=== PATIENT | female | born 1955 | race Caucasian/White ===

== ENCOUNTER 2016-07-05 13:17 | Emergency (ER) | payer MEDICARE ==
--- NOTE | 2016-07-05 13:23 | ER Document Report ---
ED Medical Screen (RME) - General Stated Complaint: BLOOD PRESSURE PROBLEM Notes: 61 yo female with hx/o HTN requesting refill of BP medication. has been out of meds x 4 days. c/o slight headache, generalized 3/5. + shortness of breath, but normal per patient. pt has COPD. Denies chest pain. [facility] [place]. Pt reports she will be able to see [facility] tomorrow. TRAVEL OUTSIDE OF THE [place] IN LAST 30 DAYS: No - Related Data Allergies/Adverse Reactions: Sulfa (Sulfonamide Antibiotics) Allergy (Intermediate, Verified 03/28/12 07:39) rash Past Medical History - Past Medical History Cardiac Medical History: Reports: Hx Coronary Artery Disease, Hx Hypercholesterolemia, Hx Hypertension, Hx Heart Murmur Pulmonary Medical History: Reports: Hx Bronchitis, Hx COPD Musculoskeltal Medical History: Reports Hx Arthritis Psychiatric Medical History: Reports: Hx Anxiety, Hx Depression Past Surgical History: Reports: Hx Cardiac Surgery - CABG x3, aortic valve, Hx Cholecystectomy, Hx Coronary Artery Bypass Graft - 12/2015, Hx Internal Defibrillator, Hx Pacemaker, Hx Tonsillectomy - Immunizations Immunizations up to date: Yes Hx Diphtheria, Pertussis, Tetanus Vaccination: Yes
[2016-07-05] MEDS ORDERED: LISINOPRIL 5 MG TABLET PO ONE (14:01)
--- NOTE | 2016-07-05 14:07 | ER Document Report ---
ED General - General Chief Complaint: Medication Refill Stated Complaint: BLOOD PRESSURE PROBLEM Mode of Arrival: Ambulatory Information source: Patient Notes: This is a 61-year-old female with a history of hypertension, COPD, and chronic back pain who presents for concern of elevated blood pressure. She states that she has been out of her lisinopril for the past 4 days and has been difficult having difficulty getting a refill from her primary care physician, whom she plans to see tomorrow about this. She is mainly here at the urging of her daughter who took the patient's blood pressure at home and noted that it was elevated with systolic of 180. They then went to [email or web address]] to have the blood pressure checked and there it was 196/100. The patient tells me that she has felt fine today and specifically denies any chest pain, shortness of breath, headache, vision changes, or weakness or paresthesias. She has been tolerating PO and feeling just fine today. She requests a refill of her lisinopril to last her until her primary care can refill it. TRAVEL OUTSIDE OF THE [place] IN LAST 30 DAYS: No - Related Data Allergies/Adverse Reactions: Sulfa (Sulfonamide Antibiotics) Allergy (Intermediate, Verified 03/28/12 07:39) rash Past Medical History - General Information source: Patient - Social History Smoking Status: Never Smoker Chew tobacco use (# tins/day): No Frequency of alcohol use: None Drug Abuse: None Family History: CAD, COPD Patient has suicidal ideation: No Patient has homicidal ideation: No - Past Medical History Cardiac Medical History: Reports: Hx Coronary Artery Disease, Hx Hypercholesterolemia, Hx Hypertension, Hx Heart Murmur Pulmonary Medical History: Reports: Hx Bronchitis, Hx COPD Renal/ Medical History: Denies: Hx Peritoneal Dialysis Musculoskeltal Medical History: Reports Hx Arthritis Psychiatric Medical History: Reports: Hx Anxiety, Hx Depression Past Surgical History: Reports: Hx Cardiac Surgery - CABG x3, aortic valve, Hx Cholecystectomy, Hx Coronary Artery Bypass Graft - 12/2015, Hx Internal Defibrillator, Hx Pacemaker, Hx Tonsillectomy - Immunizations Immunizations up to date: Yes Hx Diphtheria, Pertussis, Tetanus Vaccination: Yes Review of Systems - Review of Systems Notes: REVIEW OF SYSTEMS: CONSTITUTIONAL : Denies fever, chills, or sweats. Denies recent illness. EENT: Denies eye, ear, throat, or mouth pain or symptoms. Denies nasal or sinus congestion. CARDIOVASCULAR: Denies chest pain. RESPIRATORY: Denies cough, cold, or chest congestion. Denies breathing difficulty. She has COPD and states that her breathing is at her baseline. GASTROINTESTINAL: Denies abdominal pain. Denies nausea, vomiting, or diarrhea. GENITOURINARY: Denies difficulty urinating, painful urination, burning, frequency, or blood in urine. MUSCULOSKELETAL: Denies neck or back pain or joint pain or swelling. SKIN: Denies rash or skin lesions. HEMATOLOGIC : Denies easy bruising or bleeding. LYMPHATIC: Denies swollen, enlarged glands. NEUROLOGICAL: Denies altered mental status or loss of consciousness. Denies headache. PSYCHIATRIC: Denies anxiety or stress or depression. ALL OTHER SYSTEMS REVIEWED AND NEGATIVE. Physical Exam - Notes Notes: PHYSICAL EXAMINATION: GENERAL: Well-appearing, well-nourished and in no acute distress. Smiling, pleasant and conversant. HEAD: Atraumatic, normocephalic. EYES: Pupils equal round and reactive to light, extraocular movements intact, sclera anicteric, conjunctiva are normal. ENT: nares patent, oropharynx clear without exudates. Moist mucous membranes. NECK: Normal range of motion, supple without lymphadenopathy LUNGS: Breath sounds clear to auscultation bilaterally and equal. No wheezes rales or rhonchi. HEART: Regular rate and rhythm without murmurs ABDOMEN: Soft, nontender, normoactive bowel sounds. No guarding, no rebound. No masses appreciated. EXTREMITIES: Normal range of motion, no pitting or edema. No cyanosis. NEUROLOGICAL: Cranial nerves grossly intact. Normal speech, normal gait. Normal sensory, motor, and reflex exams. PSYCH: Normal mood, normal affect. SKIN: Warm, Dry, normal turgor, no rashes or lesions noted. Course - Re-evaluation Re-evalutation: 07/05/16 14:06 Patient has a benign physical exam and moderately elevated blood pressure and has been out of her lisinopril. Of note her daughter states that they did check her blood pressure today very shortly after she completed an albuterol nebulizer treatment. At this point she is asymptomatic and I do not feel that further workup is indicated at this point. Patient does not desire to have blood work or further testing done today. We will give her her dose of lisinopril now and refill her lisinopril to last until she can complete a refill from her primary care physician. We did discuss strict return precautions to include severe headache, weakness or numbness or tingling, chest pain or difficulty breathing or any worsening symptoms or concerns. She and her family are very comfortable with the plan and all questions were answered. 07/05/16 14:07 Discharge - Discharge Clinical Impression: Medication refill Hypertension Qualifiers: Hypertension type: essential hypertension Qualified Code(s): I10 - Essential ( primary) hypertension Condition: Stable Disposition: HOME, SELF-CARE Additional Instructions: HIGH BLOOD PRESSURE REQUIRING TREATMENT: Your blood pressure is high. This is called "hypertension." Your history and exam suggest that this is not a temporary problem. You need treatment of your blood pressure. If left untreated, high blood pressure greatly increases your risk of heart attack and stroke. Please don't ignore this problem. If you have blood pressure medicine but aren't using it regularly, start taking it again. Some simple things you can do to help are: Get some aerobic exercise for at least 20 minutes on a daily basis. (See your doctor before beginning any new exercise program.) Eat a low-fat diet. Lose excess weight. Avoid salty foods and avoid adding salt to any of the foods you eat. Avoid diet pills, decongestants, "energizing" herbs, and other medicines that elevate blood pressure. There are many different medicines that treat blood pressure. If your medication causes unpleasant side effects, call your doctor. There are others you can try. Treating hypertension is a life-long investment in your health. ANGIOTENSIN CONVERTING ENZYME INHIBITOR MEDICATION: "RODRIGO inhibitor" drugs are used to lower high blood pressure (or to reduce the "work" of the heart in patients with heart failure). These drugs block an enzyme that makes your blood vessels constrict and makes you retain salt. The result is lower blood pressure. RODRIGO inhibitors cause few side effects. The most common side effect is a dry nagging cough. Occasionally, lightheadedness may occur while you get used to the medicine. Some patients may retain extra potassium (this is a problem if you are taking potassium supplements, potassium-containing salt substitutes, or a potassium-retaining drug such as triamterene, spironolactone, or amiloride) . If you are taking lithium, the lithium level must be rechecked after starting an RODRIGO inhibitor. RODRIGO inhibitors should NOT be used during . Contact the doctor or return if you develop severe lightheadedness, wheeze , weakness, palpitations or other new symptoms. FOLLOW-UP CARE: If you have been referred to a physician for follow-up care, call the physician s office for an appointment as you were instructed or within the next two days. If you experience worsening or a significant change in your symptoms, notify the physician immediately or return to the Emergency Department at any time for re-evaluation. Continue home medications as prescribed. Please follow-up with your primary care physician tomorrow to discuss further refills. Return to the emergency department for chest pain, headache, or any worsening symptoms or concerns as we discussed. Prescriptions: Lisinopril [Prinivil] 5 mg PO DAILY #10 tablet Referrals: OTILIO NAIR FNP [Primary Care Provider] - Follow up tomorrow
[2016-07-05 14:40] VITALS: BP 148/83
== END 2016-07-05 14:41 | disposition home or self-care (01) ==
LOC: ER 13:17
DX: I10 Essential (primary) hypertension (principal); J44.9 Chronic obstructive pulmonary disease, unspecified; Z88.2 Allergy status to sulfonamides; I25.10 Atherosclerotic heart disease of native coronary artery without angina pectoris; Z95.1 Presence of aortocoronary bypass graft; Z95.810 Presence of automatic (implantable) cardiac defibrillator
CPT/HCPCS: 99281; A9270

== ENCOUNTER 2016-09-25 11:09 | Emergency (ER) | payer MEDICARE ==
[2016-09-25 11:20] VITALS: BP 161/91
--- NOTE | 2016-09-25 11:42 | ER Document Report ---
ED Medical Screen (RME) - General Chief Complaint: Chest Pain Stated Complaint: CHEST PAIN/ LEG SWOLLEN Time Seen by Provider: 09/25/16 11:19 Mode of Arrival: Ambulatory Information source: Patient TRAVEL OUTSIDE OF THE [place] IN LAST 30 DAYS: No - HPI Patient complains to provider of: Left lower extremity pain and swelling chest pain, shortness of breath Onset: Yesterday Onset/Duration: Gradual Quality of pain: Achy, Fullness, Pressure Severity: Moderate Pain Level: 3 Associated Symptoms: Body/muscle aches, Chest pain, Shortness of breath Exacerbated by: Denies Relieved by: Denies Similar symptoms previously: No Recently seen / treated by doctor: No Notes: 09/25/16 11:41 Patient is a 61-year-old female with a history of COPD, chronic low back pain, CABG with aortic valve replacement approximately 1 year ago, pacemaker, who presents to the emergency room complaining of left lower extremity pain and swelling this been worsening over the past few days, she reports "itty bitty chest pain" while driving to the emergency room today, and shortness of breath that is more chronic in nature from COPD without any worsening is a former smoker quitting at least 12 years ago, no recent traveling, no periods of immobilization, no recent surgeries, no history of DVT/PE - Related Data Allergies/Adverse Reactions: Sulfa (Sulfonamide Antibiotics) Allergy (Intermediate, Verified 09/25/16 11:32) rash Past Medical History - Social History Chew tobacco use (# tins/day): No Frequency of alcohol use: None Drug Abuse: None - Past Medical History Cardiac Medical History: Reports: Hx Coronary Artery Disease, Hx Hypercholesterolemia, Hx Hypertension, Hx Heart Murmur Pulmonary Medical History: Reports: Hx Bronchitis, Hx COPD Renal/ Medical History: Denies: Hx Peritoneal Dialysis Musculoskeltal Medical History: Reports Hx Arthritis Psychiatric Medical History: Reports: Hx Anxiety, Hx Depression Past Surgical History: Reports: Hx Cardiac Surgery - CABG x3, aortic valve, PACEMAKER, Hx Cholecystectomy, Hx Coronary Artery Bypass Graft - 12/2015, Hx Internal Defibrillator, Hx Pacemaker, Hx Tonsillectomy - Immunizations Immunizations up to date: Yes Hx Diphtheria, Pertussis, Tetanus Vaccination: Yes Physical Exam - Vital signs Vitals: Temp Pulse Resp BP Pulse Ox 98.2 F 85 20 161/91 H 92 09/25/16 11:18 09/25/16 11:18 09/25/16 11:18 09/25/16 11:18 09/25/16 11:18 Course - Vital Signs Vital signs: Temp Pulse Resp BP Pulse Ox 98.2 F 85 20 161/91 H 92 09/25/16 11:18 09/25/16 11:18 09/25/16 11:18 09/25/16 11:18 09/25/16 11:18
[2016-09-25] MEDS ORDERED: OXYCODONE-ACETAMINOPHEN 5-325 MG TABLET PO ONE (12:33)
[2016-09-25 13:02] LABS: ABSOLUTE EOSINOPHILS # (AUTO) 0.2 10^3/uL (0.0-0.6); ABSOLUTE MONOCYTES (AUTO) 0.7 10^3/uL (0.1-1.4); ABSOLUTE NEUT (AUTO) 4.8 10^3/uL (1.7-8.2); BASOPHILS % (AUTO) 0.6 % (0-2); EOSINOPHILS % (AUTO) 2.8 % (0-6); HEMATOCRIT 41.5 % (36.0-47.0); HEMOGLOBIN 13.9 g/dL (12.0-15.5); HGB HCT DIFFERENCE 0.2; LYMPHOCYTES % (AUTO) 26.1 % (13-45); MEAN CORPUSCULAR HEMOGLOBIN 30.2 pg (27.0-33.4); MEAN CORPUSCULAR HGB CONC 33.6 g/dL (32.0-36.0); MEAN CORPUSCULAR VOLUME 90 fl (80-97); MONOCYTES % (AUTO) 8.8 % (3-13); RED BLOOD COUNT 4.61 10^6/uL (3.72-5.28); RED CELL DISTRIBUTION WIDTH 13.5 % (11.5-14.0); SEGMENTED NEUTROPHILS % (AUTO) 61.7 % (42-78); WHITE BLOOD COUNT 7.7 10^3/uL (4.0-10.5)
[2016-09-25 13:12] LABS: PARTIAL THROMBOPLASTIN TIME 30.6 SEC (23.5-35.8); PROTHROMBIN TIME 12.3 SEC (11.4-15.4)
[2016-09-25 13:14] LABS: APPEARANCE,URINE CLOUDY; BILIRUBIN,URINE NEGATIVE (NEGATIVE); GLUCOSE, URINE NEGATIVE (NEGATIVE); KETONES,URINE NEGATIVE (NEGATIVE); LEUKOCYTE ESTERASE,URINE LARGE (NEGATIVE); NITRITE,URINE NEGATIVE (NEGATIVE); PROTEIN,URINE NEGATIVE (NEGATIVE); URINE SPECIFIC GRAVITY 1.023; UROBILINOGEN,URINE NEGATIVE mg/dL (<2.0)
[2016-09-25 13:22] LABS: ALANINE AMINOTRANSFERASE 28 U/L (9-52); ALBUMIN 3.6 g/dL (3.5-5.0); ALKALINE PHOSPHATASE 77 U/L (38-126); ANION GAP 11 (5-19); ASPARTATE AMINO TRANSFERASE 22 U/L (14-36); BILIRUBIN,DIRECT 0.2 mg/dL (0.0-0.4); BILIRUBIN,TOTAL 0.4 mg/dL (0.2-1.3); BLOOD UREA NITROGEN 22 mg/dL (7-20); CALCIUM 9.3 mg/dL (8.4-10.2); CARBON DIOXIDE 30 mmol/L (22-30); CHLORIDE 103 mmol/L (98-107); CREATINE KINASE 174 U/L (30-135); GLUCOSE 139 mg/dL (75-110); POTASSIUM 4.4 mmol/L (3.6-5.0); SODIUM 144.1 mmol/L (137-145); TOTAL PROTEIN 6.6 g/dL (6.3-8.2)
[2016-09-25 13:33] LABS: CREATINE KINASE MB 2.84 ng/mL (<4.55)
[2016-09-25 13:44] LABS: TROPONIN I < 0.012 ng/mL
--- NOTE | 2016-09-25 13:51 | RADIOLOGY REPORT (SQ) ---
EXAM DESCRIPTION: CHEST PA/LAT COMPLETED DATE/TIME: 09/25/2016 1:34 pm REASON FOR STUDY: cp COMPARISON: None. EXAM PARAMETERS: NUMBER OF VIEWS: two views TECHNIQUE: Digital Frontal and Lateral radiographic views of the chest acquired. RADIATION DOSE: NA LIMITATIONS: none FINDINGS: LUNGS AND PLEURA: No opacities, masses or pneumothorax. No pleural effusion. MEDIASTINUM AND HILAR STRUCTURES: No masses or contour abnormalities. HEART AND VASCULAR STRUCTURES: Heart normal size. No evidence for failure. BONES: No acute findings. HARDWARE: Transvenous pacemaker is unchanged in position. Patient is status post median sternotomy. OTHER: No other significant finding. IMPRESSION: No significant interval change. No acute findings. Other findings as noted above TECHNICAL DOCUMENTATION: JOB ID: [id number] [employer]- All Rights Reserved
--- NOTE | 2016-09-25 14:47 | ER Document Report ---
ED General - General Chief Complaint: Chest Pain Stated Complaint: CHEST PAIN/ LEG SWOLLEN Time Seen by Provider: 09/25/16 11:19 Mode of Arrival: Ambulatory Information source: Patient Notes: 61 yr old female presents with oncerns for left heel pain. pt notes pain is on going now for 2 weeks, it hurts more when she ambulates, imrpoves with rest. denies any chest pain sob, or bilateral lower extremity edema. TRAVEL OUTSIDE OF THE [place] IN LAST 30 DAYS: No - HPI Onset: Other Onset/Duration: Persistent Quality of pain: Achy Severity: Mild Pain Level: 1 Associated symptoms: Body/muscle aches Exacerbated by: Walking Relieved by: Denies Similar symptoms previously: No Recently seen / treated by doctor: No - Related Data Allergies/Adverse Reactions: Sulfa (Sulfonamide Antibiotics) Allergy (Intermediate, Verified 09/25/16 11:32) rash Past Medical History - General Information source: Patient - Social History Smoking Status: Never Smoker Cigarette use (# per day): No Chew tobacco use (# tins/day): No Smoking Education Provided: No Frequency of alcohol use: None Drug Abuse: None Family History: CAD, COPD Patient has suicidal ideation: No Patient has homicidal ideation: No - Past Medical History Cardiac Medical History: Reports: Hx Coronary Artery Disease, Hx Hypercholesterolemia, Hx Hypertension, Hx Heart Murmur Pulmonary Medical History: Reports: Hx Bronchitis, Hx COPD Renal/ Medical History: Denies: Hx Peritoneal Dialysis Musculoskeltal Medical History: Reports Hx Arthritis Psychiatric Medical History: Reports: Hx Anxiety, Hx Depression Past Surgical History: Reports: Hx Cardiac Surgery - CABG x3, aortic valve, PACEMAKER, Hx Cholecystectomy, Hx Coronary Artery Bypass Graft - 12/2015, Hx Internal Defibrillator, Hx Pacemaker, Hx Tonsillectomy - Immunizations Immunizations up to date: Yes Hx Diphtheria, Pertussis, Tetanus Vaccination: Yes Review of Systems - Review of Systems Notes: PHYSICAL EXAMINATION: GENERAL: Well-appearing, well-nourished and in no acute distress. HEAD: Atraumatic, normocephalic. EYES: Pupils equal round and reactive to light, extraocular movements intact, conjunctiva are normal. ENT: Nares patent, oropharynx clear without exudates. Moist mucous membranes. NECK: Normal range of motion, supple without lymphadenopathy LUNGS: Breath sounds clear to auscultation bilaterally and equal. No wheezes rales or rhonchi. HEART: Regular rate and rhythm without murmurs ABDOMEN: Soft, nontender, nondistended abdomen. No guarding, no rebound. No masses appreciated. Female : deferred Musculoskeletal: tender in heel , no calf pain or edema NEUROLOGICAL: Cranial nerves grossly intact. Normal speech, normal gait. Normal sensory, motor exams PSYCH: Normal mood, normal affect. SKIN: Warm, Dry, normal turgor, no rashes or lesions noted. Physical Exam - Vital signs Vitals: Temp Pulse Resp BP Pulse Ox 98.2 F 85 20 161/91 H 92 09/25/16 11:18 09/25/16 11:18 09/25/16 11:18 09/25/16 11:18 09/25/16 11:18 Course - Re-evaluation Re-evalutation: 09/25/16 15:35 Patient's pain is only in the heel, x-ray was performed which was consistent with calcaneal spur and tendinopathy. This is consistent with the patient's presentation. She will be given steroids and is otherwise stable for discharge no life-threatening issues are noted patient evaluated for DVT versus congestive heart failure After performing a Medical Screening Examination, I estimate there is LOW risk for RUPTURED ESOPHAGUS, PNEUMOTHORAX, PULMONARY EMBOLISM, ACUTE CORONARY SYNDROME, OR THORACIC AORTIC DISSECTION, thus I consider the discharge disposition reasonable. I have reevaluated this patient multiple times and no significant life threatening changes are noted. The patient and I have discussed the diagnosis and risks, and we agree with discharging home with close follow-up. We also discussed returning to the Emergency Department immediately if new or worsening symptoms occur. We have discussed the symptoms which are most concerning (e.g., bloody sputum, worsening pain or shortness of breath) that necessitate immediate return. - Vital Signs Vital signs: Temp Pulse Resp BP Pulse Ox 98.2 F 85 20 161/91 H 92 09/25/16 11:18 09/25/16 11:18 09/25/16 11:18 09/25/16 11:18 09/25/16 11:18 - Laboratory Result Diagrams: 09/25/16 12:40 09/25/16 12:40 Laboratory results interpreted by me: 09/25/16 09/25/16 12:40 12:40 BUN 22 H Glucose 139 H Creatine Kinase 174 H Ur Leukocyte Esterase LARGE H - Diagnostic Test Radiology reviewed: Image reviewed, Reports reviewed - EKG Interpretation by Me EKG shows normal: Sinus rhythm, Roann, Intervals, QRS Complexes Discharge - Discharge Clinical Impression: Tendinopathy, Calcaneal spur of left foot Condition: Stable Disposition: HOME, SELF-CARE Instructions: Tendonitis ([facility]) Prescriptions: Prednisone [Deltasone 20 mg Tablet] 3 tab PO DAILY 5 Days Referrals: OTILIO NAIR FNP [Primary Care Provider] - Follow up as needed MAULIK PICKENS DPM [ACTIVE STAFF] - Follow up tomorrow
--- NOTE | 2016-09-25 15:18 | RADIOLOGY REPORT (SQ) ---
EXAM DESCRIPTION: FOOT LEFT COMPLETE COMPLETED DATE/TIME: 09/25/2016 3:00 pm REASON FOR STUDY: heel pain COMPARISON: None. NUMBER OF VIEWS: Three views. TECHNIQUE: AP, lateral and oblique radiographic images acquired of the left foot. LIMITATIONS: None. FINDINGS: MINERALIZATION: Normal. BONES: Small bunion. No acute osseous abnormality. Plantar calcaneal spur. Small dorsal calcaneal spur. JOINTS: No effusions. SOFT TISSUES: There appears to be calcification in the distal Achilles tendon. OTHER: No other significant finding. IMPRESSION: 1. Achilles tendinopathy. 2. Plantar and dorsal calcaneal spurs. 3. Small bunion. TECHNICAL DOCUMENTATION: JOB ID: [id number] [employer]- All Rights Reserved
--- NOTE | 2016-09-25 16:35 | XCELERA REPORT ---
[address] [address] Lower Extremity Venous Evaluation Name: ANDREA MACHADO Age: 61 yrs Gender: Female : 1955 Patient Status: Emergency Patient Location: ER Study Date: 09/25/2016 12:19 PM Procedure: Color flow and duplex imaging of the veins of the left lower extremity as well as the right Common Femoral vein. Reason For Study: LLE pain, swelling Ordering Physician: GRACE GIBSON Performed By: Lia Tyler Right Sided Venous Evaluation The right common femoral vein is fully compressible. Spontaneous and phasic flow is present in the right common femoral vein. Left Sided Venous Evaluation Normal vessel filling wall to wall, compression and augmentation as well as Colour flow down to the infrageniculate veins. Critical Findings Called in to the ER. Interpretation Summary No duplex evidence of DVT or obstruction in the left lower extremity nor in the right Common Femoral vein. : GRACE GIBSON > Sanjay Garg
--- NOTE | 2016-09-25 20:40 | EKG REPORT ---
SEVERITY:- ABNORMAL ECG - SINUS RHYTHM PROBABLE LEFT ATRIAL ABNORMALITY RIGHT BUNDLE BRANCH BLOCK : Confirmed by: Santiago Curiel MD 25-Sep-2016 20:39:36
== END 2016-09-25 15:49 | disposition home or self-care (01) ==
LOC: ER 11:09
DX: M77.32 Calcaneal spur, left foot (principal); R07.9 Chest pain, unspecified; M79.89 Other specified soft tissue disorders
CPT/HCPCS: 93005; 99285; 36415; 87086; 82553; 82550; 85025; 85610; 85730; 80053; 81001; 84484; 93971 ×2; 71020; 73630; 93010; A9270

== ENCOUNTER 2017-03-18 13:18 | Emergency (ER) | payer MEDICARE, OTHER ==
[2017-03-18 13:36] VITALS: BP 159/95
--- NOTE | 2017-03-18 14:17 | ER Document Report ---
ED Blood Pressure Problem - General Chief Complaint: High Blood Pressure Stated Complaint: HIGH BLOOD PRESSURE Time Seen by Provider: 03/18/17 14:10 Notes: The patient is a 62-year-old female, past medical history hypertension (on losartan 50 mg and hydrochlorthiazide 12.5 mg), presents to the ER with a friend. While here, she went to have her blood pressure checked because it was around 170/100 at home 2 days ago when she had a headache. She no longer has a headache. Patient denies chest pain, shortness of breath, numbness, tingling, blurry vision, abdominal pain, fevers or back pain. TRAVEL OUTSIDE OF THE [place] IN LAST 30 DAYS: No - Related Data Allergies/Adverse Reactions: Sulfa (Sulfonamide Antibiotics) Allergy (Intermediate, Verified 03/18/17 13:35) rash Home Medications: Current Home Medications Losartan/Hydrochlorothiazide [Hyzaar 50-12.5 Tablet] 1 each PO DAILY 03/18/17 [ History] Past Medical History - General Information source: Patient - Social History Smoking Status: Never Smoker Chew tobacco use (# tins/day): No Frequency of alcohol use: None Drug Abuse: None Family History: CAD, COPD Patient has suicidal ideation: No Patient has homicidal ideation: No - Past Medical History Cardiac Medical History: Reports: Hx Coronary Artery Disease, Hx Hypercholesterolemia, Hx Hypertension, Hx Heart Murmur Pulmonary Medical History: Reports: Hx Bronchitis, Hx COPD Renal/ Medical History: Denies: Hx Peritoneal Dialysis Musculoskeltal Medical History: Reports Hx Arthritis Psychiatric Medical History: Reports: Hx Anxiety, Hx Depression Past Surgical History: Reports: Hx Cardiac Surgery - CABG x3, aortic valve, PACEMAKER, Hx Cholecystectomy, Hx Coronary Artery Bypass Graft - 12/2015, Hx Internal Defibrillator, Hx Pacemaker, Hx Tonsillectomy - Immunizations Immunizations up to date: Yes Hx Diphtheria, Pertussis, Tetanus Vaccination: Yes Review of Systems - Review of Systems Notes: REVIEW OF SYSTEMS: CONSTITUTIONAL: -fevers, -chills EENT: -eye pain, -difficulty swallowing, -nasal congestion CARDIOVASCULAR:-chest pain, -syncope. RESPIRATORY: -cough, -SOB GASTROINTESTINAL: -abdominal pain, - nausea, -vomiting, -diarrhea GENITOURINARY: -dysuria, -hematuria MUSCULOSKELETAL: -back pain, -neck pain SKIN: -rash or skin lesions. HEMATOLOGIC: -easy bruising or bleeding. LYMPHATIC: -swollen, enlarged glands. NEUROLOGICAL: -altered mental status or loss of consciousness, +headache, - neurologic symptoms PSYCHIATRIC: -anxiety, -depression. ALL OTHER SYSTEMS REVIEWED AND NEGATIVE. Physical Exam - Vital signs Vitals: Temp Pulse Resp BP Pulse Ox 98.3 F 81 16 159/95 H 93 03/18/17 13:33 03/18/17 13:33 03/18/17 13:33 03/18/17 13:33 03/18/17 13:33 - Notes Notes: PHYSICAL EXAMINATION: GENERAL: Well-appearing, well-nourished and in no acute distress. HEAD: Atraumatic, normocephalic. EYES: Pupils equal round and reactive to light, extraocular movements intact, sclera anicteric, conjunctiva are normal. ENT: nares patent, oropharynx clear without exudates. Moist mucous membranes. NECK: Normal range of motion, supple without lymphadenopathy LUNGS: Breath sounds clear to auscultation bilaterally and equal. No wheezes rales or rhonchi. HEART: Regular rate and rhythm without murmurs ABDOMEN: Soft, nontender, normoactive bowel sounds. No guarding, no rebound. No masses appreciated. EXTREMITIES: Normal range of motion, no pitting or edema. No cyanosis. NEUROLOGICAL: Cranial nerves grossly intact. Normal speech, normal gait. Normal sensory and motor exams. PSYCH: Normal mood, normal affect. SKIN: Warm, Dry, normal turgor, no rashes or lesions noted. Course - Re-evaluation Re-evalutation: Patient with asymptomatic hypertension. She only had her blood pressure checked , since she was here with a friend. Told her to continue her losartan and hydrochlorothiazide and follow-up with her primary care physician for possible adjustment of her blood pressure meds. Her headache is benign in nature and not consistent with ICH, SAH meningitis at this time. - Vital Signs Vital signs: Temp Pulse Resp BP Pulse Ox 98.3 F 81 16 159/95 H 93 03/18/17 13:33 03/18/17 13:33 03/18/17 13:33 03/18/17 13:33 03/18/17 13:33 Discharge - Discharge Clinical Impression: Hypertension Qualifiers: Hypertension type: unspecified Qualified Code(s): I10 - Essential (primary) hypertension Condition: Stable Disposition: HOME, SELF-CARE Additional Instructions: Continue to take your blood pressure medications and bring a log of your blood pressure readings to your primary care physician for possible adjustments of your medications. HIGH BLOOD PRESSURE REQUIRING TREATMENT: Your blood pressure is high. This is called "hypertension." Today's reading was 159/93 (normal is less than 140/90). Your history and exam suggest that this is not a temporary problem. You need treatment of your blood pressure. If left untreated, high blood pressure greatly increases your risk of heart attack and stroke. Please don't ignore this problem. If you have blood pressure medicine but aren't using it regularly, start taking it again. Some simple things you can do to help are: Get some aerobic exercise for at least 20 minutes on a daily basis. (See your doctor before beginning any new exercise program.) Eat a low-fat diet. Lose excess weight. Avoid salty foods and avoid adding salt to any of the foods you eat. Avoid diet pills, decongestants, "energizing" herbs, and other medicines that elevate blood pressure. There are many different medicines that treat blood pressure. If your medication causes unpleasant side effects, call your doctor. There are others you can try. Treating hypertension is a life-long investment in your health. FOLLOW-UP CARE: If you have been referred to a physician for follow-up care, call the physician s office for an appointment as you were instructed or within the next two days. If you experience worsening or a significant change in your symptoms, notify the physician immediately or return to the Emergency Department at any time for re-evaluation.
== END 2017-03-18 14:21 | disposition home or self-care (01) ==
LOC: ER 13:18
DX: I10 Essential (primary) hypertension (principal); I25.10 Atherosclerotic heart disease of native coronary artery without angina pectoris; E78.00 Pure hypercholesterolemia, unspecified; J44.9 Chronic obstructive pulmonary disease, unspecified; Z88.2 Allergy status to sulfonamides; Z95.1 Presence of aortocoronary bypass graft; Z95.0 Presence of cardiac pacemaker; Z90.49 Acquired absence of other specified parts of digestive tract
CPT/HCPCS: 99283

== ENCOUNTER 2017-07-16 05:32 | Emergency (ER) | payer OTHER, MEDICARE ==
[2017-07-16] MEDS ORDERED: DEXAMETHASONE 4 MG TABLET PO ONE (06:36)
[2017-07-16] MEDS ORDERED: NAPROXEN 250 MG TABLET PO ONE (06:36)
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
[2017-07-16 07:39] VITALS: BP 139/92
== END 2017-07-16 07:39 | disposition home or self-care (01) ==
LOC: ER 05:32
DX: S39.012A Strain of muscle, fascia and tendon of lower back, initial encounter (principal); S20.212A Contusion of left front wall of thorax, initial encounter; J02.9 Acute pharyngitis, unspecified; M54.9 Dorsalgia, unspecified; M25.511 Pain in right shoulder; M25.512 Pain in left shoulder; R07.89 Other chest pain; V87.7XXA Person injured in collision between other specified motor vehicles (traffic), initial encounter; I10 Essential (primary) hypertension; I25.10 Atherosclerotic heart disease of native coronary artery without angina pectoris; Z87.891 Personal history of nicotine dependence; Z95.0 Presence of cardiac pacemaker
CPT/HCPCS: 71046; 99283

== ENCOUNTER 2018-05-05 15:10 | Emergency (ER) | payer MEDICARE, OTHER ==
--- NOTE | 2018-05-05 17:05 | ER Document Report ---
ED General - General Chief Complaint: Dizziness Stated Complaint: DIZZY, BLOODY NOSE, HEADACHE Notes: 63-year-old female with a history of COPD, chronic low back pain, CABG with aortic valve replacement approximately in 2015, pacemaker, not on anticoagulation per patient presents to the emergency room for headache and dizziness times 3 weeks and nosebleed since today. She said the nosebleed was out of her right nare lasted approximately 8 minutes and then spontaneously resolved after a little bit of packing with Kleenex. It was a one-time episode and was not recurrent. She complains of no other symptoms. Denies nausea. Her primary care is a nurse practitioner Huma out of [facility]. TRAVEL OUTSIDE OF THE [place] IN LAST 30 DAYS: No - Related Data Allergies/Adverse Reactions: Sulfa (Sulfonamide Antibiotics) Allergy (Intermediate, Verified 05/05/18 15:12) rash Past Medical History - General Information source: Patient - Social History Smoking Status: Former Smoker Frequency of alcohol use: None Drug Abuse: None Family History: CAD, COPD Patient has suicidal ideation: No Patient has homicidal ideation: No - Past Medical History Cardiac Medical History: Reports: Hx Coronary Artery Disease, Hx Hypercholesterolemia, Hx Hypertension, Hx Heart Murmur Pulmonary Medical History: Reports: Hx Bronchitis, Hx COPD Renal/ Medical History: Denies: Hx Peritoneal Dialysis Musculoskeletal Medical History: Reports Hx Arthritis Psychiatric Medical History: Reports: Hx Anxiety, Hx Depression Past Surgical History: Reports: Hx Cardiac Surgery - CABG x3, aortic valve, PACEMAKER, Hx Cholecystectomy, Hx Coronary Artery Bypass Graft - 12/2015, Hx Internal Defibrillator, Hx Pacemaker, Hx Tonsillectomy - Immunizations Immunizations up to date: Yes Hx Diphtheria, Pertussis, Tetanus Vaccination: Yes Review of Systems - Review of Systems Constitutional: No symptoms reported EENT: No symptoms reported Cardiovascular: No symptoms reported Respiratory: No symptoms reported Gastrointestinal: See HPI Genitourinary: No symptoms reported Female Genitourinary: No symptoms reported Musculoskeletal: No symptoms reported Skin: No symptoms reported Hematologic/Lymphatic: No symptoms reported Neurological/Psychological: See HPI Physical Exam - Vital signs Vitals: Temp Pulse Resp BP Pulse Ox 98.9 F 86 18 145/93 H 94 05/05/18 15:18 05/05/18 15:18 05/05/18 15:18 05/05/18 15:18 05/05/18 15:18 - Notes Notes: Reviewed vital signs and nursing note as charted by RN. CONSTITUTIONAL: Well-appearing, well-nourished, acting appropriately for age HEAD: Normocephalic, atraumatic, no swelling EYES: PERRL, Conjunctivae clear, no drainage, EOMI, no scleral icterus ENT: External ears without lesions, External auditory canal is patent, TMs without erythema, landmarks clear and well visualized, no rhinorrhea, Pharynx without erythema or lesions, no tonsillar hypertrophy, airway patent, mucous membranes pink and moist NECK: Supple, no cervical lymphadenopathy, no masses CARD: Regular rate and rhythm, no murmurs, no rubs, no gallops, capillary refill < 2 seconds, symmetric pulses RESP: The lungs are clear to auscultation bilaterally, no wheezing, no rales, no rhonchi. Respiratory rate and effort are normal, normal chest excursion. No respiratory distress, no retractions, no stridor, no nasal flaring, no accessory muscle use. ABD/GI: Normal bowel sounds, non-distended, soft, non-tender, no rebound, no guarding, no palpable organomegaly EXT: Normal ROM in all joints, non-tender to palpation, no effusions, no edema SKIN: Normal color for age and race, warm, dry, good turgor, no acute lesions noted NEURO: No facial asymmetry, moves all four extremities equally strength 5/5, motor and sensory function intact, no focal neuro deficits, PERRL Course - Re-evaluation Re-evalutation: 05/05/18 17:09 Very pleasant 63-year-old female with COPD, hypertension, CABG with aortic valve replacement, pacemaker presents to the emergency department for dizziness and headache for 3 weeks. She had a spontaneous nosebleed today that lasted approximately 8 minutes and resolved. There were no further nosebleeds after that. She is also complaining of tinnitus in her left ear. She denies nausea. Her primary care is nurse practitioner Huma at [facility]. Discussed patient with Dr. Rawls. Neurologic exam intact, no focal deficits, pupils are equal round reactive to light, TMs pearly bourgeois not bulging no fluid behind the eardrums. Patient's blood pressure was 145/93 and she is taking her blood pressure medication. At this point any further clinical testing is not necessary at this time as patient is no longer complaining of any symptoms. Of note she has had an unintentional 20 pound weight loss in the last month. I told her that she should absolutely needs to follow-up with her primary care provider to address the symptoms. At this time patient is stable for discharge. 05/05/18 17:11 - Vital Signs Vital signs: Temp Pulse Resp BP Pulse Ox 98.9 F 86 18 145/93 H 94 05/05/18 15:18 05/05/18 15:18 05/05/18 15:18 05/05/18 15:18 05/05/18 15:18 Discharge - Discharge Clinical Impression: Dizziness Headache Qualifiers: Headache type: unspecified Headache chronicity pattern: chronic headache Intractability: not intractable Qualified Code(s): R51 - Headache Condition: Good Disposition: HOME, SELF-CARE Additional Instructions: You were seen in the emergency department this afternoon for headache and dizziness, ringing in her left ear, and a bloody nose that resolved. Because you are not having any symptoms right now this is already wearing. Your neurologic exam showed no evidence of any abnormalities. This is all very reassuring and from the emergency department perspective there is nothing further to do. It is important that you follow-up with your primary care provider tomorrow morning. If you do develop severe unremitting headache, chest pain, shortness of breath, you pass out, or you have any other concerning symptoms please immediately return to the emergency department. Referrals: OTILIO NAIR FNP [Primary Care Provider] - Follow up as needed
[2018-05-05 17:20] VITALS: BP 124/84
== END 2018-05-05 17:21 | disposition home or self-care (01) ==
LOC: ER 15:10
DX: R42 Dizziness and giddiness (principal); R51 Headache; G89.29 Other chronic pain; M54.5 Low back pain; J44.9 Chronic obstructive pulmonary disease, unspecified; I10 Essential (primary) hypertension; Z95.1 Presence of aortocoronary bypass graft; Z95.2 Presence of prosthetic heart valve; Z88.2 Allergy status to sulfonamides; I25.10 Atherosclerotic heart disease of native coronary artery without angina pectoris; E78.00 Pure hypercholesterolemia, unspecified; Z90.49 Acquired absence of other specified parts of digestive tract; Z95.0 Presence of cardiac pacemaker
CPT/HCPCS: 99284

== ENCOUNTER 2018-08-19 15:47 | Emergency (ER) | payer MEDICARE ==
[2018-08-19 16:10] VITALS: BP 152/82
--- NOTE | 2018-08-19 16:12 | ER Document Report ---
ED Blood Pressure Problem - General Chief Complaint: High Blood Pressure Stated Complaint: BLOOD PRESSURE PROBLEMS Time Seen by Provider: 08/19/18 16:07 Primary Care Provider: OTILIO NAIR FNP [Primary Care Provider] - Follow up as needed Mode of Arrival: Ambulatory Information source: Patient Notes: 63-year-old female presented to ED for elevated blood pressure. She states she was dizzy and lightheaded and [employer] so she took her blood pressure was 160/100. She decided to come to the emergency room because she could not get a hold her primary doctor. Her blood pressure was 153/101 in the emergency room with the blood pressure machine but her manual blood pressure is 152/82. I consulted Dr. Mckeon concerning her symptoms history and medication. She improved her increase in her lisinopril until she seen by the doctor. Patient will increase her lisinopril from 10 mg daily to 10 mg in the morning and 5 mg in the evening until she can follow-up with her primary doctor as long as she sees her Wednesday or Wednesday. She states she will check her blood pressure every day and if the blood pressure drops she will go back to just taking 1 pill a day. TRAVEL OUTSIDE OF THE [place] IN LAST 30 DAYS: No - HPI Patient complains to provider of: High blood pressure Onset: Other - You have high blood pressure dizzy earlier with a high blood pressure Onset/Duration: Better - Still has high blood pressure but no longer dizzy Quality of pain: No pain Severity: None Pain Level: Denies Problem is: Chronic problem Pt currently taking medication for problem: Yes Associated symptoms: Dizziness, Lightheaded Similar symptoms previously: Yes Recently seen / treated by doctor: Yes - Related Data Allergies/Adverse Reactions: Sulfa (Sulfonamide Antibiotics) Allergy (Intermediate, Verified 08/19/18 15:55) rash Past Medical History - General Information source: Patient - Social History Smoking Status: Former Smoker - 30 years ago Frequency of alcohol use: None Drug Abuse: None Lives with: Family Family History: CAD, COPD Patient has suicidal ideation: No Patient has homicidal ideation: No - Past Medical History Cardiac Medical History: Reports: Hx Coronary Artery Disease, Hx Hypercholesterolemia, Hx Hypertension, Hx Heart Murmur Pulmonary Medical History: Reports: Hx Bronchitis, Hx COPD EENT Medical History: Reports: None Neurological Medical History: Reports: None Endocrine Medical History: Reports: None Renal/ Medical History: Reports: None Malignancy Medical History: Reports: None GI Medical History: Reports: None Musculoskeletal Medical History: Reports Hx Arthritis Skin Medical History: Reports None Psychiatric Medical History: Reports: Hx Anxiety, Hx Depression Traumatic Medical History: Reports: None Infectious Medical History: Reports: None Past Surgical History: Reports: Hx Cardiac Surgery - CABG x3, aortic valve, PACEMAKER, Hx Cholecystectomy, Hx Coronary Artery Bypass Graft - 12/2015, Hx Internal Defibrillator, Hx Pacemaker, Hx Tonsillectomy - Immunizations Immunizations up to date: Yes Hx Diphtheria, Pertussis, Tetanus Vaccination: Yes Review of Systems - Review of Systems Constitutional: No symptoms reported EENT: No symptoms reported Cardiovascular: No symptoms reported Respiratory: No symptoms reported Gastrointestinal: No symptoms reported Genitourinary: No symptoms reported Female Genitourinary: No symptoms reported Musculoskeletal: No symptoms reported Skin: No symptoms reported Hematologic/Lymphatic: No symptoms reported Neurological/Psychological: No symptoms reported -: Yes All other systems reviewed and negative Physical Exam - Vital signs Vitals: Temp Pulse Resp BP Pulse Ox 98.1 F 92 18 155/101 H 92 08/19/18 15:59 08/19/18 15:59 08/19/18 15:59 08/19/18 15:59 08/19/18 15:59 Interpretation: Hypertensive - General General appearance: Appears well, Alert - HEENT Head: Normocephalic, Atraumatic Eyes: Normal Pupils: PERRL - Respiratory Respiratory status: No respiratory distress Chest status: Nontender Breath sounds: Normal Chest palpation: Normal - Cardiovascular Rhythm: Regular Heart sounds: Normal auscultation Murmur: No - Abdominal Inspection: Normal Distension: No distension Bowel sounds: Normal Tenderness: Nontender Organomegaly: No organomegaly - Back Back: Normal, Nontender - Extremities General upper extremity: Normal inspection, Nontender, Normal color, Normal ROM, Normal temperature General lower extremity: Normal inspection, Nontender, Normal color, Normal ROM, Normal temperature, Normal weight bearing. No: Susan's sign - Neurological Neuro grossly intact: Yes Cognition: Normal Orientation: AAOx4 [place] Coma Scale Eye Opening: Spontaneous Prasad Coma Scale Verbal: Oriented Prasad Coma Scale Motor: Obeys Commands Prasad Coma Scale Total: 15 Speech: Normal Motor strength normal: LUE, RUE, LLE, RLE Sensory: Normal - Psychological Associated symptoms: Normal affect, Normal mood - Skin Skin Temperature: Warm Skin Moisture: Dry Skin Color: Normal Course - Re-evaluation Re-evalutation: 08/19/18 16:13 She states she was dizzy and lightheaded earlier but she has dizziness or lightheadedness at this time. She denies any headache. I have spoken with Dr. Mckeon who stated it was okay to increase her lisinopril until she can get seen by her primary care doctor. She states she will contact her doctor to be seen on Wednesday. Patient was discharged home. - Vital Signs Vital signs: Temp Pulse Resp BP Pulse Ox 98.1 F 92 18 155/101 H 92 08/19/18 15:59 08/19/18 15:59 08/19/18 15:59 08/19/18 15:59 08/19/18 15:59 Discharge - Discharge Clinical Impression: High blood pressure Qualifiers: Hypertension type: unspecified Qualified Code(s): I10 - Essential (primary) hypertension Condition: Stable Disposition: HOME, SELF-CARE Additional Instructions: HIGH BLOOD PRESSURE REQUIRING TREATMENT: Your blood pressure is high. This is called "hypertension." Today's reading was _153/101 and 152/82 (normal is less than 140/90). Your history and exam suggest that this is not a temporary problem. You need treatment of your blood pressure. If left untreated, high blood pressure greatly increases your risk of heart attack and stroke. Please don't ignore this problem. If you have blood pressure medicine but aren't using it regularly, start taking it again. Some simple things you can do to help are: Get some aerobic exercise for at least 20 minutes on a daily basis. (See your doctor before beginning any new exercise program.) Eat a low-fat diet. Lose excess weight. Avoid salty foods and avoid adding salt to any of the foods you eat. Avoid diet pills, decongestants, "energizing" herbs, and other medicines that elevate blood pressure. There are many different medicines that treat blood pressure. If your medication causes unpleasant side effects, call your doctor. There are others you can try. Treating hypertension is a life-long investment in your health. ANGIOTENSIN CONVERTING ENZYME INHIBITOR MEDICATION: When you taking your 10 mg of lisinopril in the morning and take 5 mg in the afternoon until you can get seen by the primary care doctor Wednesday or Wednesday. Please check your blood pressure each day. "RODRIGO inhibitor" drugs are used to lower high blood pressure (or to reduce the "work" of the heart in patients with heart failure). These drugs block an enzyme that makes your blood vessels constrict and makes you retain salt. The result is lower blood pressure. RODRIGO inhibitors cause few side effects. The most common side effect is a dry nagging cough. Occasionally, lightheadedness may occur while you get used t o the medicine. Some patients may retain extra potassium (this is a problem if you are taking potassium supplements, potassium-containing salt substitutes, or a potassium-retaining drug such as triamterene, spironolactone, or amiloride). If you are taking lithium, the lithium level must be rechecked after starting an RODRIGO inhibitor. RODRIGO inhibitors should NOT be used during . Contact the doctor or return if you develop severe lightheadedness, wheeze, weakness, palpitations or other new symptoms. FOLLOW-UP CARE: If you have been referred to a physician for follow-up care, call the physicians office for an appointment as you were instructed or within the next two days. If you experience worsening or a significant change in your symptoms, notify the physician immediately or return to the Emergency Department at any time for re-evaluation. Forms: Elevated Blood Pressure Referrals: OTILIO NAIR FNP [Primary Care Provider] - 08/22/18
== END 2018-08-19 16:15 | disposition home or self-care (01) ==
LOC: ER 15:47
DX: I10 Essential (primary) hypertension (principal); Z79.899 Other long term (current) drug therapy; R42 Dizziness and giddiness; J44.9 Chronic obstructive pulmonary disease, unspecified; I25.10 Atherosclerotic heart disease of native coronary artery without angina pectoris; Z88.2 Allergy status to sulfonamides; Z87.891 Personal history of nicotine dependence; Z95.1 Presence of aortocoronary bypass graft; Z95.810 Presence of automatic (implantable) cardiac defibrillator
CPT/HCPCS: 99283

== ENCOUNTER 2018-08-20 12:20 | Emergency (ER) | payer MEDICARE ==
--- NOTE | 2018-08-20 12:54 | ER Document Report ---
ED Medical Screen (RME) - General Chief Complaint: High Blood Pressure Stated Complaint: BLOOD PRESSURE ISSUES Time Seen by Provider: 08/20/18 12:48 Primary Care Provider: OTILIO NAIR FNP [Primary Care Provider] - Follow up as needed Mode of Arrival: Ambulatory Information source: Patient Notes: 63-year-old female presented to ED for complaint of elevated blood pressure with headache and dizziness. She was seen yesterday with no symptoms but the blood pressure we increased her blood pressure medication to 1-1/2 times her dose. She states she took this this morning and her blood pressure is still high and now she is having dizziness and headache. She cannot see her provider until after the holidays. We will get some blood in urine this time and have her seen by a provider. I have greeted and performed a rapid initial assessment of this patient. A comprehensive ED assessment and evaluation of the patient, analysis of test results and completion of medical decision making process will be conducted by an additional ED providers. TRAVEL OUTSIDE OF THE [place] IN LAST 30 DAYS: No - Related Data Allergies/Adverse Reactions: Sulfa (Sulfonamide Antibiotics) Allergy (Intermediate, Verified 08/20/18 12:22) rash Past Medical History - Social History Chew tobacco use (# tins/day): No Frequency of alcohol use: None Drug Abuse: Prescription drugs - Past Medical History Cardiac Medical History: Reports: Hx Coronary Artery Disease, Hx Hypercholesterolemia, Hx Hypertension, Hx Heart Murmur Pulmonary Medical History: Reports: Hx Bronchitis, Hx COPD Renal/ Medical History: Denies: Hx Peritoneal Dialysis Musculoskeltal Medical History: Reports Hx Arthritis Psychiatric Medical History: Reports: Hx Anxiety, Hx Depression Past Surgical History: Reports: Hx Cardiac Surgery - CABG x3, aortic valve, PACEMAKER, Hx Cholecystectomy, Hx Coronary Artery Bypass Graft - 12/2015, Hx Internal Defibrillator, Hx Pacemaker, Hx Tonsillectomy - Immunizations Immunizations up to date: Yes Hx Diphtheria, Pertussis, Tetanus Vaccination: Yes Physical Exam - Vital signs Vitals: Temp Pulse Resp BP Pulse Ox 98.0 F 81 16 164/98 H 93 08/20/18 12:25 08/20/18 12:25 08/20/18 12:25 08/20/18 12:25 08/20/18 12:25 Course - Vital Signs Vital signs: Temp Pulse Resp BP Pulse Ox 98.0 F 81 16 164/98 H 93 08/20/18 12:25 08/20/18 12:25 08/20/18 12:25 08/20/18 12:25 08/20/18 12:25 Doctor's Discharge - Discharge Referrals: OTILIO NAIR FNP [Primary Care Provider] - Follow up as needed
[2018-08-20 14:59] LABS: ABSOLUTE BASOPHILS # (AUTO) 0.1 10^3/uL (0.0-0.2); ABSOLUTE EOSINOPHILS # (AUTO) 0.2 10^3/uL (0.0-0.6); ABSOLUTE LYMPHOCYTES (AUTO) 2.8 10^3/uL (0.5-4.7); ABSOLUTE MONOCYTES (AUTO) 0.6 10^3/uL (0.1-1.4); ABSOLUTE NEUT (AUTO) 5.8 10^3/uL (1.7-8.2); BASOPHILS % (AUTO) 0.8 % (0-2); EOSINOPHILS % (AUTO) 2.2 % (0-6); HEMATOCRIT 43.4 % (36.0-47.0); HEMOGLOBIN 15.2 g/dL (12.0-15.5); LYMPHOCYTES % (AUTO) 29.2 % (13-45); MEAN CORPUSCULAR HEMOGLOBIN 31.5 pg (27.0-33.4); MEAN CORPUSCULAR VOLUME 90 fl (80-97); MONOCYTES % (AUTO) 6.7 % (3-13); PLATELET COUNT 311 10^3/uL (150-450); RED BLOOD COUNT 4.82 10^6/uL (3.72-5.28); SEGMENTED NEUTROPHILS % (AUTO) 61.1 % (42-78); TOTAL CELLS COUNTED % (AUTO) 100 %; WHITE BLOOD COUNT 9.5 10^3/uL (4.0-10.5)
[2018-08-20 15:07] LABS: ALANINE AMINOTRANSFERASE 18 U/L (9-52); ALBUMIN 3.8 g/dL (3.5-5.0); ALKALINE PHOSPHATASE 77 U/L (38-126); ANION GAP 6 (5-19); ASPARTATE AMINO TRANSFERASE 22 U/L (14-36); BILIRUBIN,DIRECT 0.2 mg/dL (0.0-0.4); BILIRUBIN,TOTAL 0.4 mg/dL (0.2-1.3); BLOOD UREA NITROGEN 15 mg/dL (7-20); CALCIUM 9.9 mg/dL (8.4-10.2); CARBON DIOXIDE 28 mmol/L (22-30); CHLORIDE 108 mmol/L (98-107); GLUCOSE 100 mg/dL (75-110); POTASSIUM 4.2 mmol/L (3.6-5.0); SODIUM 141.7 mmol/L (137-145); TOTAL PROTEIN 7.7 g/dL (6.3-8.2)
--- NOTE | 2018-08-20 15:13 | ER Document Report ---
ED General - General Chief Complaint: High Blood Pressure Stated Complaint: BLOOD PRESSURE ISSUES Time Seen by Provider: 08/20/18 12:48 Primary Care Provider: OTILIO NAIR FNP [Primary Care Provider] - Follow up as needed Mode of Arrival: Ambulatory TRAVEL OUTSIDE OF THE [place] IN LAST 30 DAYS: No - HPI Notes: Patient is a 63-year-old female with a history of hypertension and COPD who presents emergency department planing of a productive cough times 1 week (green colored mucus) with elevated blood pressure, frontal headache over the past few days. Patient was evaluated yesterday and had a slight adjustment in her blood pressure medication at that time. Patient states that this is not the worst headache of her life and did not start suddenly. She is otherwise able to eat and drink without difficulty. She is urinating normally and having normal bowel movements. She has no new onset of shortness of breath or any development of chest pain. Denies any fever, injury, neck pain, changes in vision/speech/mentation/hearing, URI, sore throat, chest pain, palpitations, syncope, shortness of breath, wheeze, dyspnea, abdominal pain, nausea/ vomiting/diarrhea, urinary retention, dysuria, hematuria, loss of control of bowel or bladder, numbness/tingling, saddle anesthesia, muscle paralysis/weakness, or rash. - Related Data Allergies/Adverse Reactions: Sulfa (Sulfonamide Antibiotics) Allergy (Intermediate, Verified 08/20/18 12:22) rash Past Medical History - General Information source: Patient - Social History Smoking Status: Former Smoker Chew tobacco use (# tins/day): No Frequency of alcohol use: None Drug Abuse: Prescription drugs Family History: CAD, COPD Patient has suicidal ideation: No Patient has homicidal ideation: No - Past Medical History Cardiac Medical History: Reports: Hx Coronary Artery Disease, Hx Hypercholesterolemia, Hx Hypertension, Hx Heart Murmur Pulmonary Medical History: Reports: Hx Bronchitis, Hx COPD Renal/ Medical History: Denies: Hx Peritoneal Dialysis Musculoskeletal Medical History: Reports Hx Arthritis Psychiatric Medical History: Reports: Hx Anxiety, Hx Depression Past Surgical History: Reports: Hx Cardiac Surgery - CABG x3, aortic valve, PACEMAKER, Hx Cholecystectomy, Hx Coronary Artery Bypass Graft - 12/2015, Hx Internal Defibrillator, Hx Pacemaker, Hx Tonsillectomy - Immunizations Immunizations up to date: Yes Hx Diphtheria, Pertussis, Tetanus Vaccination: Yes Review of Systems - Review of Systems -: Yes All other systems reviewed and negative Physical Exam - Vital signs Vitals: Temp Pulse Resp BP Pulse Ox 98.0 F 81 16 164/98 H 93 08/20/18 12:25 08/20/18 12:25 08/20/18 12:25 08/20/18 12:25 08/20/18 12:25 - Notes Notes: PHYSICAL EXAMINATION: GENERAL: Well-appearing, well-nourished and in no acute distress. A&Ox4. Answers questions appropriately. HEAD: Atraumatic, normocephalic. Non-tender. EYES: Pupils equal round and reactive to light, extraocular movements intact, sclera anicteric, conjunctiva are normal. No nystagmus. vis geronimo intact. ENT: Nares patent and without discharge. oropharynx clear without exudates. No tonsilar hypertrophy or erythema. Moist mucous membranes. No sinus tenderness. NECK: Normal range of motion, supple without lymphadenopathy. No rigidity/meningismus. No midline tenderness. LUNGS: Breath sounds clear to auscultation bilaterally and equal. No wheezes rales or rhonchi. HEART: Regular rate and rhythm without murmurs, rubs, gallops. ABDOMEN: Soft, nontender, nondistended abdomen. No guarding, no rebound. Normal bowel sounds present. No CVA tenderness bilaterally. Musculoskeletal: Ext's b/l: FROM to passive/active. Strength 5+/5. No deficits noted. No bony tenderness of extremities. Extremities: No cyanosis, clubbing, or edema b/l. Peripheral pulses 2+. Capillary refill less than 2 seconds. NEUROLOGICAL: NIH 0. GCS 15. Cranial nerves grossly intact. Normal speech, normal gait. Normal sensory, motor exams. Reflexes 2+ b/l. WHITLEY's negative. Pronator drift negative. Heel/jacobo, finger/nose wnl. PSYCH: Normal mood, normal affect. SKIN: Warm, Dry, normal turgor, no rashes or lesions noted. Course - Re-evaluation Re-evalutation: 08/20/18 17:29 Patient is an afebrile, well-hydrated, 63-year-old female who presents emergency department with COPD exacerbation. Vitals are acceptable without significant tachycardia, tachypnea, or hypoxia. Her blood pressure has been acceptable today. PE is otherwise unremarkable. Patient is having productive green sputum in the presence of COPD. She otherwise has not had any chest pain or shortness of breath/wheezing. She has not warranted any other COPD treatment. CBC, CMP, urinalysis, chest x-ray unremarkable. No further labs or imaging warranted at this time. She is nontoxic-appearing and is tolerating p.o. without difficulty. Patient has had resolution of her headache throughout her stay. Patient is otherwise neurologically intact without any focal deficits noted. Low suspicion for any ACS, PE, pneumothorax, pericarditis, dissection, acute intracranial pathology, sepsis, meningitis, severe dehydration, respiratory compromise, or other systemic emergent condition at this time. Patient is aware that condition can change from initial presentation and she needs to monitor symptoms closely and seek medical attention with any acute changes. We will send her home with a prescription for doxycycline. Recheck with your PCM in 2-3 days. Return to the ED with any other worsening/concerning symptoms as reviewed. Patient is in a greement. - Vital Signs Vital signs: Temp Pulse Resp BP Pulse Ox 98.0 F 81 16 136/83 H 91 L 08/20/18 12:25 08/20/18 12:25 08/20/18 17:01 08/20/18 17:01 08/20/18 17:01 - Laboratory Result Diagrams: 08/20/18 13:15 08/20/18 13:15 Laboratory results interpreted by me: 08/20/18 08/20/18 13:15 15:53 Chloride 108 H Ur Leukocyte Esterase TRACE H Discharge - Discharge Clinical Impression: COPD exacerbation High blood pressure Qualifiers: Hypertension type: unspecified Qualified Code(s): I10 - Essential (primary) hypertension Condition: Stable Disposition: HOME, SELF-CARE Additional Instructions: Maintain adequate fluid and food intake Take home medications as directed Healthy diet low in sodium Monitor blood pressure daily and keep a log Monitor symptoms for any acute changes Recheck with your PCM in 2-3 days Consider a follow-up with cardiology Return to the ED with any worsening symptoms and/or development of fever, headache, chest pain, palpitations, syncope, shortness of breath, trouble breathing, abdominal pain, n/v/d, blood in stool/urine, loss of control of bowel/bladder, urinary retention, muscle weakness/paralysis, numbness/tingling, or other worsening symptoms that are concerning to you. Prescriptions: Doxycycline Hyclate 100 mg PO BID #20 capsule Forms: Elevated Blood Pressure Referrals: OTILIO NAIR FNP [Primary Care Provider] - Follow up as needed
--- NOTE | 2018-08-20 15:43 | RADIOLOGY REPORT (SQ) ---
EXAM DESCRIPTION: CHEST 2 VIEWS COMPLETED DATE/TIME: 08/20/2018 3:27 pm REASON FOR STUDY: cough COMPARISON: 07/16/2017 EXAM PARAMETERS: NUMBER OF VIEWS: two views TECHNIQUE: Digital Frontal and Lateral radiographic views of the chest acquired. RADIATION DOSE: NA LIMITATIONS: none FINDINGS: LUNGS AND PLEURA: No opacities, masses or pneumothorax. No pleural effusion. MEDIASTINUM AND HILAR STRUCTURES: No masses or contour abnormalities. HEART AND VASCULAR STRUCTURES: Heart normal size. No evidence for failure. BONES: Sternal wires. HARDWARE: CABG hardware. Pacemaker. OTHER: No other significant finding. IMPRESSION: NO ACUTE RADIOGRAPHIC FINDING IN THE CHEST. TECHNICAL DOCUMENTATION: JOB ID: [id number] [employer]- All Rights Reserved Reading location - IP/workstation name: [email or web address]
[2018-08-20 16:22] LABS: APPEARANCE,URINE SLIGHTLY-CLOUDY; BILIRUBIN,URINE NEGATIVE (NEGATIVE); COLOR,URINE YELLOW; GLUCOSE, URINE NEGATIVE (NEGATIVE); KETONES,URINE NEGATIVE (NEGATIVE); LEUKOCYTE ESTERASE,URINE TRACE (NEGATIVE); NITRITE,URINE NEGATIVE (NEGATIVE); PROTEIN,URINE NEGATIVE (NEGATIVE); URINE SPECIFIC GRAVITY 1.016; UROBILINOGEN,URINE NEGATIVE mg/dL (<2.0)
[2018-08-20 17:35] VITALS: BP 130/92
== END 2018-08-20 17:53 | disposition home or self-care (01) ==
LOC: ER 12:20
DX: I10 Essential (primary) hypertension (principal); Z79.899 Other long term (current) drug therapy; J44.1 Chronic obstructive pulmonary disease with (acute) exacerbation; R05 Cough; R51 Headache; I25.10 Atherosclerotic heart disease of native coronary artery without angina pectoris; Z95.1 Presence of aortocoronary bypass graft; Z95.810 Presence of automatic (implantable) cardiac defibrillator; Z88.2 Allergy status to sulfonamides
CPT/HCPCS: 36415; 71046; 80053; 81001; 84443; 85025; 99283

== ENCOUNTER → 2019-08-25 | Outpatient (CLI) | payer MEDICARE ==
--- NOTE | 2019-08-25 11:14 | RADIOLOGY REPORT (SQ) ---
EXAM DESCRIPTION: KNEE RIGHT 3 VIEWS IMAGES COMPLETED DATE/TIME: 08/25/2019 10:51 am REASON FOR STUDY: INJURY OF RT KNEE COMPARISON: None. NUMBER OF VIEWS: Three views. TECHNIQUE: AP, lateral, and sunrise patella radiographic images acquired of the right knee. LIMITATIONS: None. FINDINGS: MINERALIZATION: Normal. BONES: No acute fracture or dislocation. No worrisome bone lesions. JOINT: Moderate joint effusion. SOFT TISSUES: No soft tissue swelling. No radio-opaque foreign body. OTHER: No other significant finding. IMPRESSION: Moderate joint effusion without evidence of acute bony abnormality. TECHNICAL DOCUMENTATION: JOB ID: [id number] 2010 [employer]- All Rights Reserved Reading location - IP/workstation name: [email or web address]
== END ==
LOC: OD 10:36
PROVIDERS: ATTEND Nurse Practitioner
DX: S89.91XD Unspecified injury of right lower leg, subsequent encounter (principal); X58.XXXD Exposure to other specified factors, subsequent encounter; M25.461 Effusion, right knee

== ENCOUNTER → 2019-12-29 | Outpatient (CLI) | payer MEDICARE ==
--- NOTE | 2019-12-29 15:17 | RADIOLOGY REPORT (SQ) ---
EXAM DESCRIPTION: CT RT LOWER EXTREMITY WITHOUT IMAGES COMPLETED DATE/TIME: 12/29/2019 7:48 am REASON FOR STUDY: INJURY OF RIGHT KNEE (S89.91XD) S89.91XD UNSPECIFIED INJURY OF RIGHT LOWER LEG, S UBSEQUENT E COMPARISON: August radiographs TECHNIQUE: Axial imaging performed through the right knee with reformatted coronal and sagittal imag ing windowed for bone and soft tissues. Images saved to PACS. 3D IMAGING: Were 3D images as MIP, SSD, or volume rendering performed at the work station? No All CT scanners at this facility use dose modulation, iterative reconstruction, and/or weight based d osing when appropriate to reduce radiation dose to as low as reasonably achievable (ALARA). [facility]: Dose Right [facility]: CareDose [facility]: Dose Right [facility]: Teradose 4D [facility]: [employer] LIMITATIONS: None. RADIATION DOSE: mGy. FINDINGS: SOFT TISSUES: Small to moderate joint effusion and small Stringer cyst. No regional mass or drainable collections otherwise. BONES: Joint space narrowing in the medial compartment. There is a medial tibial plateau osteochondr al lesion, lucency with what appears to be discontinuity of the subchondral plate. This lesion measu res up to 1.2 cm in the axial plane. Patellofemoral joint space narrowing noted without subchondral cysts. No acute fracture identified. MINERALIZATION: Normal. OTHER: No other significant finding. IMPRESSION: 1. Osteochondral lesion in the medial tibial plateau. TECHNICAL DOCUMENTATION: JOB ID: [id number] Quality ID # [id number]: Final reports with documentation of one or more dose reduction techniques (e.g., Au tomated exposure control, adjustment of the mA and/or kV according to patient size, use of iterative reconstruction technique) 2010 [employer]- All Rights Reserved Reading location - IP/workstation name: [email or web address]
== END ==
LOC: RAD 07:30
PROVIDERS: ATTEND Orthopaedic Surgery Sports Medicine
DX: S89.91XD Unspecified injury of right lower leg, subsequent encounter (principal); M85.661 Other cyst of bone, right lower leg; X58.XXXD Exposure to other specified factors, subsequent encounter